=== PATIENT | male | born 1955 | race Caucasian/White ===

== ENCOUNTER 2019-08-19 13:49 | Emergency (ER) | payer BC, MEDICARE | END 2019-08-19 14:00 | LOC: LB.ED 13:49 | DX: Z53.21 Procedure and treatment not carried out due to patient leaving prior to being seen by health care provider (principal) ==

== ENCOUNTER 2020-09-05 13:23 | Emergency (ER) | payer MEDICARE ==
--- NOTE | 2020-09-05 14:40 | EDM.PDOC ---
ED HPI GENERAL MEDICAL PROBLEM - General Chief Complaint: General Stated Complaint: DEER TICK Time Seen by Provider: 09/05/20 13:23 Source of Information: Reports: Patient - History of Present Illness Onset: Today Location: Reports: Back Quality: Reports: Ache, Dull Severity: Mild Past Medical History - Past Health History Medical/Surgical History: Denies Medical/Surgical History - Past Surgical History Other Musculoskeletal Surgeries/Procedures:: s/p Dupuytren's excision left 5th finger Social & Family History - Tobacco Use Tobacco Use Status *Q: Light Tobacco User Years of Tobacco use: 40 Packs/Tins Daily: 0.3 - Caffeine Use Caffeine Use: Reports: Coffee - Alcohol Use Days Per Week of Alcohol Use: 5 Number of Drinks Per Day: 2 Total Drinks Per Week: 10 - Recreational Drug Use Recreational Drug Use: No ED ROS GENERAL - Review of Systems Review Of Systems: See Below Constitutional: Reports: No Symptoms HEENT: Reports: No Symptoms Respiratory: Reports: No Symptoms Cardiovascular: Reports: No Symptoms Endocrine: Reports: No Symptoms GI/Abdominal: Reports: No Symptoms : Reports: No Symptoms Musculoskeletal: Reports: No Symptoms Skin: Reports: Other (Red rash lizandro 2 cm around a small dark FB on lt side upper back.) Neurological: Reports: No Symptoms Psychiatric: Reports: No Symptoms Hematologic/Lymphatic: Reports: No Symptoms Immunologic: Reports: No Symptoms ED EXAM, GENERAL - Physical Exam Exam: See Below Skin Exam: Other (Red rash 2 cm around small dark FB.) ED GENERAL MEDICAL PROCEDURES - Additional/Other Procedure(s) Other (Free Text) Procedure(s): Currette and scapel used to remove FB from skin. Abx ointment and band-aid applied per nursing. Course - Vital Signs Last Recorded V/S: Last Vital Signs Temp 97.9 F 09/05/20 13:25 Pulse 83 09/05/20 13:25 Resp 16 09/05/20 13:25 BP 149/93 H 09/05/20 13:25 Pulse Ox 99 09/05/20 13:25 Departure - Departure Time of Disposition: 13:50 Disposition: Home, Self-Care 01 Condition: Good Clinical Impression: Tick bite Qualifiers: Encounter type: initial encounter Qualified Code(s): W57.XXXA - Bitten or stung by nonvenomous insect and other nonvenomous arthropods, initial encounter - Discharge Information *PRESCRIPTION DRUG MONITORING PROGRAM REVIEWED*: Not Applicable (DCN 200 mg given x 1 dose) *COPY OF PRESCRIPTION DRUG MONITORING REPORT IN PATIENT BEBE: Not Applicable Instructions: Insect Bite, Adult, [id number] Referrals: PCP,None [Primary Care Provider] - Forms: ED Department Discharge Care Plan Goals: Follow up in clinic for tick panel in 2 weeks. Sepsis Event Note (ED) - Evaluation Sepsis Screening Result: No Definite Risk
== END 2020-09-05 13:50 | disposition home or self-care (01) ==
LOC: LB.ED 13:23
DX: S20.462A Insect bite (nonvenomous) of left back wall of thorax, initial encounter (principal); Z72.0 Tobacco use; W57.XXXA Bitten or stung by nonvenomous insect and other nonvenomous arthropods, initial encounter
CPT/HCPCS: 10120; 99281; 99283

== ENCOUNTER 2021-12-23 15:20 | Emergency (ER) | payer MEDICARE ==
[2021-12-23] MEDS ORDERED: Erythromycin Base 0.5% Ophth Oint 3.5 GM Tube ONE (15:45)
== END 2021-12-23 15:50 | disposition home or self-care (01) ==
LOC: LB.ED 15:20
DX: S05.02XA Injury of conjunctiva and corneal abrasion without foreign body, left eye, initial encounter (principal); W29.3XXA Contact with powered garden and outdoor hand tools and machinery, initial encounter
CPT/HCPCS: 99281; 99283; A9270-GY